=== PATIENT | female | born 1985 | race Caucasian/White ===

== ENCOUNTER 2023-08-09 19:12 | Emergency (ER) | payer BC, OTHER, SELFPAY ==
--- NOTE | ~2023-08-09 | XR_ITS ---
EXAM: XR hand LT min 3V DATE: 08/09/2023 19:39 HISTORY: dog bite with multiple lacerations/punctures . COMPARISON: None available. FINDINGS: Normal mineralization. No fracture or dislocation. No lytic or blastic lesion. Joint space s are maintained. No erosion or periosteal change. Soft tissues within normal limits. IMPRESSION: No acute osseous finding in the left hand. Reviewed, dictated and finalized at location K.
--- NOTE | 2023-08-09 19:16 | ED.ANIMALBIT ---
HPI - Animal Bite General Chief Complaint: Wound/Laceration Stated Complaint: Animal Bite Lt Hand Time Seen by Provider: 08/09/23 19:26 Source: patient, RN notes reviewed and old records reviewed Mode of arrival: ambulatory Limitations: no limitations History of Present Illness HPI narrative: [id number]-old female presents to the [facility] with a dog bite to the left hand. Multiple puncture wounds, abrasions and lacerations noted. Does have full range of motion. Sensation intact. Capillary refill under 2 seconds. Unknown last Tdap. Onset (ago): minute(s) (20) Animal: dog Description of animal: household pet Mechanism: bite Location - Extremities: Right: hand Related Data Patient tetanus UTD: No Home Medications Medication Instructions Recorded Confirmed phentermine 15 mg capsule 15 mg PO DAILY 08/09/23 08/09/23 Allergies Allergy/AdvReac Type Severity Reaction Status Date / Time Penicillins AdvReac Unknown Vomiting Verified 08/12/23 09:11 Review of Systems Review of Systems: All systems reviewed & are unremarkable except as noted in HPI and below Constitutional: Constitutional: Reports no additional constitutional complaints Eyes: Eyes: Reports no additional eye complaints ENT: Reports system reviewed and no additional complaints, except as documented Cardiovascular: Cardiovascular: Reports no additional cardiovascular complaints, Denies chest pain and Denies dyspnea Respiratory: Respiratory: Reports no additional respiratory complaints, Denies chest congestion, Denies cough and Denies dyspnea Gastrointestinal: Gastrointestinal: Reports no additional gastrointestinal complaints, Denies abdominal pain, Denies nausea and Denies vomiting Musculoskeletal: Musculoskeletal: Reports no additional musculoskeletal complaints Integumentary/Breasts: Skin/Breast: Reports as per HPI Neurologic: Reports system reviewed and no additional complaints, except as documented Psychiatric: Psychiatric: Reports no additional psychiatric complaints Allergic/Immunologic: Allergic/Immunologic: Reports no additional allergic/immunologic complaints PMFSH Social History Social History Smoking status: Never smoker Comments At the time of my signature, I reviewed and agree with the nursing past medical, surgical, social, and family history. There is no relevant family history pertinent to the patient complaint. Exam Const: General: cooperative, healthy appearing, comfortable, no acute distress, well developed, alert and well nourished Nutritional Appearance: well nourished Orientation/consciousness: patient oriented x3 Limitations: no limitations HENMT: Head: normal to inspection Ears: hearing grossly normal bilaterally and external ears normal Face/Nose/Sinus: Normal external nose present, Normal nares present, Normal nasal mucous membranes and turbinates present, normal facial exam and face symmetric Face and sinus: normal facial exam and face symmetric Eyes: General: appearance normal, both eyes and all related structures Alignment and Position: alignment normal Periorbital: periorbital findings normal Pupils: Equal, round and reactive pupils present EOM: EOMs intact bilaterally Neck: Neck: normal visual inspection, full ROM, no lymphadenopathy and no meningeal signs Chest: Chest palpation & inspection: normal inspection of the chest Resp: Effort & Inspection: normal respiratory effort and able to speak in complete sentences Cardio: Rate: regular rate Rhythm: regular rhythm Back/Spine/Pelvis: Cervical Spine: cervical ROM normal Skin: General skin exam: normal color and no rashes or lesions noted Lesions: no lesions Rashes: no rashes Other: Multiple wounds left hand. PIP and proximal, palmar aspect laceration between digits 3 and 4. 2.5 cm Second digit puncture, abrasion 2nd digit at proximal PIP open 3 cm laceration 3rd digit abrasion 4th d
[2023-08-09 19:26] VITALS: BP 153/98; PULSE 94; RESP 18; TEMP 36.6; O2SAT 100
[2023-08-09 19:28] VITALS: BP 153/98; PULSE 94; RESP 18; TEMP 36.6; O2SAT 100
[2023-08-09] MEDS: LIDOCAINE HCL 1% LOCAL INJ 2 ML AMPUL 6 ML INFILTRATE (19:46)
[2023-08-09] MEDS: TETANUS,DIPHTHERIA,AC PERTUSSIS ADULT (0.5 ML) BOOSTRIX IM (19:46)
== END 2023-08-09 20:41 | disposition home or self-care (01) ==
PROVIDERS: Emergency Provider Nurse Practitioner
DX: S61.412A Laceration without foreign body of left hand, initial encounter (principal); S61.211A Laceration without foreign body of left index finger without damage to nail, initial encounter; W54.0XXA Bitten by dog, initial encounter; Z23 Encounter for immunization; Z85.820 Personal history of malignant melanoma of skin
CPT/HCPCS: 12004; 73130; 90471; 90715; 99213; G0463